=== PATIENT | female | born 1950 | race Caucasian/White ===

== ENCOUNTER 2017-05-15 07:52 | Day surgery (SDC) | payer MEDICARE, OTHER ==
[~2017-05-15] VITALS: Ht 154.9 cm; Wt 69.6 kg
[2017-05-15] MEDS ORDERED: ASPIRIN 81MG (08:37)
[2017-05-15] MEDS ORDERED: LISINOPRIL (08:37)
[2017-05-15 09:07] VITALS: BP 125/59; PULSE 57; RESP 17
[2017-05-15 10:00] VITALS: BP 120/72; RESP 14
[2017-05-15] MEDS ORDERED: MIDAZOLAM 1 MG/ML 2 ML INJ ONE (10:11)
[2017-05-15] MEDS ORDERED: FENTAnyl 50 MCG/ML VIAL ONE (10:11)
--- NOTE | 2017-05-15 10:59 | GILP ---
DATE OF PROCEDURE: PROCEDURE: Colonoscopy. PREOPERATIVE DIAGNOSIS: Screening colonoscopy to rule out colon polyps. POSTOPERATIVE DIAGNOSES: 1. Moderate degree of diverticulosis all over the colon. 2. Minimal external hemorrhoids. DESCRIPTION OF PROCEDURE: After the informed written consent was obtained, the patient was asked to lie on the left lateral side. Intravenous anesthesia was given which included 2 mg Versed and 50 m cg of fentanyl. When the patient became somnolent, the Olympus video colonoscope was introduced int o the rectum and scope was advanced all the way to the cecum. Moderate degree of diverticulosis was noted all over the colon, but no inflammation, no polyps or any other abnormality detected in the m [place]. Scope at this time was withdrawn from the cecum. On the way out, further evaluation was car ried out, minimal external hemorrhoids were noted and the procedure was terminated. PLAN: Recommend repeat colonoscopy in 10 years. Dictated By: SONA CAPUTO/LULA Conf#: [id number] DID#: [id number] CC: Dr. Garcia;*EndCC*
--- NOTE | 2017-05-19 18:21 | OPPN ---
Date/Time of Note Date/Time of Note DATE: 05/19/17 TIME: 18:19 Proc Note GI Procedure Date 05/19/17 Pre-procedure Diagnosis r/o colon polyps Post-procedure Diagnosis diverticulosis moderate hemorrhoids mild Procedure Performed: Colonoscopy Surgeon see signature line Household Assistant none Anesthesia Type: moderate sedation Tourniquet Time none EBL none Transfusion required none Biopsy 1: none Grafts/Implants none Tubes/Drains none Complication(s) none Procedure Description colonoscopy under mod sedation diverticulosis hemorrhoids SONA RICHARDS MD May 19, 2017 18:21
--- NOTE | 2017-05-19 18:21 | OPPN ---
Date/Time of Note Date/Time of Note DATE: 05/19/17 TIME: 18:19 Proc Note GI Procedure Date 05/19/17 Pre-procedure Diagnosis r/o colon polyps Post-procedure Diagnosis diverticulosis moderate hemorrhoids mild Procedure Performed: Colonoscopy Surgeon see signature line Commercial Project Manager none Anesthesia Type: moderate sedation Tourniquet Time none EBL none Transfusion required none Biopsy 1: none Grafts/Implants none Tubes/Drains none Complication(s) none Procedure Description colonoscopy under mod sedation diverticulosis hemorrhoids SONA RICHARDS MD May 19, 2017 18:21
== END 2017-05-15 13:22 | disposition home or self-care (01) ==
LOC: GIL 07:52
PROVIDERS: ATTEND Internal Medicine Gastroenterology
DX: Z12.11 Encounter for screening for malignant neoplasm of colon (principal); K57.30 Diverticulosis of large intestine without perforation or abscess without bleeding; K64.4 Residual hemorrhoidal skin tags; E11.9 Type 2 diabetes mellitus without complications; I10 Essential (primary) hypertension
CPT/HCPCS: 45378; 82962; J2250; J3010